=== PATIENT | female | born 1965 | race Hispanic/Latino ===

== ENCOUNTER 2016-09-26 16:28 | Emergency (ER) | payer SELFPAY ==
[2016-09-26 17:21] VITALS: BP 142/101
== END 2016-09-27 03:05 | disposition left against medical advice (07) ==
LOC: ED 16:28
DX: S69.91XA Unspecified injury of right wrist, hand and finger(s), initial encounter (principal); M19.90 Unspecified osteoarthritis, unspecified site; I25.2 Old myocardial infarction; I10 Essential (primary) hypertension; E78.5 Hyperlipidemia, unspecified; F17.200 Nicotine dependence, unspecified, uncomplicated; X58.XXXA Exposure to other specified factors, initial encounter; Y93.89 Activity, other specified; Y99.9 Unspecified external cause status; Y92.89 Other specified places as the place of occurrence of the external cause; Z53.21 Procedure and treatment not carried out due to patient leaving prior to being seen by health care provider

== ENCOUNTER 2016-10-09 07:34 | Emergency (ER) | payer SELFPAY ==
[2016-10-09 08:23] VITALS: BP 115/72
--- NOTE | 2016-10-09 08:57 | Emergency Department Report ---
HPI - General Chief Complaint: Extremity Injury, Upper Time Seen by Provider: 10/09/16 08:48 - HPI HPI: Patient is a 51-year-old female presents to the ED complaining of right thumb swelling and redness times several weeks. Patient states right abdominal A painful. Patient states to be sore at the not painful. Patient states she would not lie to have drained or anyone to touch her finger. Patient's he she will like some antibiotics and referral for mini clinic to follow-up. Patient states she is in a recovery program and would like nothing for pain. Patient denies nail biting. She denies history of diabetes or hypertension or any other medical conditions She denies fevers/chills/nausea/vomiting/any other problems. ED Past Medical Hx - Past Medical History Previous Medical History?: Yes Hx Hypertension: Yes Hx Heart Attack/AMI: Yes Hx Congestive Heart Failure: No Hx Diabetes: No Hx Arthritis: Yes Hx Psychiatric Treatment: Yes ([facility] , Drug abuse) Hx Asthma: No Hx COPD: No Additional medical history: hyperlipidemia, Drug use - Surgical History Past Surgical History?: Yes Hx Coronary Stent: Yes Additional Surgical History: Right Ankle skin graft - Social History Smoking Status: Current Every Day Smoker Substance Use Type: Prescribed - Medications Home Medications: Home Medications Medication Instructions Recorded Confirmed Last Taken Type Aspirin [Baby Aspirin] 81 mg PO QDAY 04/22/13 04/15/14 10/17/13 History Clopidogrel [Plavix] 75 mg PO QDAY #30 tablet 08/28/13 04/15/14 10/17/13 Rx Metoprolol [Lopressor TAB] 25 mg PO BID #60 tablet 08/28/13 04/15/14 10/17/13 Rx Pravastatin (Nf) [Pravachol] 80 mg PO QHS #30 tablet 08/28/13 04/15/14 10/17/13 Rx Sertraline [Zoloft] 50 mg PO QDAY #30 tablet 10/31/13 04/15/14 Unknown Rx Ciprofloxacin HCl [Ciprofloxacin 250 mg PO BID #6 tablet 04/19/14 Unknown Rx TAB] Cephalexin [Keflex] 500 mg PO TID #21 cap 10/09/16 Unknown Rx ED Review of Systems ROS: Stated complaint: RT NAIL INFECTION Other details as noted in HPI Constitutional: denies: chills, fever, malaise Eyes: denies: eye pain, eye discharge, vision change ENT: denies: ear pain, throat pain, dental pain, hearing loss Respiratory: denies: cough, shortness of breath, wheezing Cardiovascular: denies: chest pain, palpitations Endocrine: no symptoms reported Gastrointestinal: denies: abdominal pain, nausea, diarrhea Genitourinary: denies: urgency, dysuria, discharge Musculoskeletal: denies: back pain, joint swelling, arthralgia Skin: change in hair/nails (right thumb red and swollen). denies: rash, lesions , pruritus Neurological: denies: headache, weakness, paresthesias Psychiatric: denies: anxiety, depression Hematological/Lymphatic: denies: easy bleeding, easy bruising Physical Exam - Physical Exam Vital Signs: Vital Signs 10/09/16 08:17 Temperature 98.7 F Pulse Rate 98 H Respiratory 20 Rate Blood Pressure 115/72 O2 Sat by Pulse 96 Oximetry Physical Exam: GENERAL: Alert and oriented x3, no apparent distress, Normal Gait, atraumatic. HEAD: Head is normocephalic and a-traumatic. EYES: Extra ocular muscles are intact. Pupils are equal, round, and reactive to light and accommodation. EARS: symetrical, atraumatic. gross auditory nml bilaterally. NOSE: Nose symetrical, Nontender,Nares appeared normal. MOUTH:Mouth is well hydrated and without lesions. LUNGS: Symetrical with respiration, No wheezing, no rales or crackles, CTAB. HEART: S1, S2 present, regular rate and rhythm without murmur, no rubs, no gallops. EXTREMITIES/MUSCULOSKELETAL: No cyanosis, clubbing, rash, lesions or edema. Full ROM in hands bilaterally. Radial Pulses 2+ bilaterally. UE 5+ strength bilaterally, right thumb erythematous, edematous 3-4 cm in diameter, fluctuant. Nontender to palpation of right thumb. No loss of sensation. No active drainage. SKIN: Warm and dry, No lesions, No ulceration or induration present. ED Course Vital Signs 10/09/16 08:17 Temperature 98.7 F Pulse Rate 98 H Respiratory 20 Rate Blood Pressure 115/72 O2 Sat by Pulse 96 Oximetry ED Medical Decision Making - Medical Decision Making 51-year-old female presents with thumb paronychia and cellulitis. ED course: Patient states adamantly states she does not want her finger drained. Patient states she does not want it drained in the ED she would like a referral for a clinic to follow-up and have it drained. Patient also states she'll light some antibiotics. Discussed the patient to soak his thumb a warm water and Epson salt 3 times a day. Discussed to take antibiotics as prescribed. Discussed possibility of draining on its own and if not she needs to follow-up some is possible with the clinic as referred. Discussed the patient complications of not drain in an abscess and infection. Discussed the patient infection can spread to her bones and cause of osteomyelitis as well as loss of finger. Patient states she verbally understands and does not want to have it drained in the ED. Patient is alert and oriented 3 patient is in no distress patient is able to make decisions on her own. Critical care attestation.: If time is entered above; I have spent that time in minutes in the direct care of this critically ill patient, excluding procedure time. ED Disposition Clinical Impression: Paronychia of finger of right hand, Cellulitis of right thumb Disposition: DISCHARGED TO HOME OR SELFCARE Is pt being admited?: No Does the pt Need Aspirin: No Condition: Stable Instructions: Paronychia (ED), Cellulitis (ED) Additional Instructions: Follow-up with primary care physician as referred. take prescription antibiotics as prescribed. Soak Thumb In warm water/epsom salt 3 times a day. Continue to use your topical antibiotic applied to affected area you refused to have his thumb drained today. you understand that if your thumb abscess is not drained, can cause other complications including but not limited to loss of finger Prescriptions: Cephalexin [Keflex] 500 mg PO TID #21 cap Referrals: PRIMARY CARE, [Primary Care Provider] - 3-5 Days [facility] [Outside] - 3-5 Days [facility] [Outside] - 3-5 Days [facility] [Outside] - 3-5 Days [facility] [Outside] - 3-5 Days Forms: Work/School Release Form(ED) Time of Disposition: 09:21
== END 2016-10-09 09:24 | disposition home or self-care (01) ==
LOC: ED 07:34
DX: L03.011 Cellulitis of right finger (principal); I10 Essential (primary) hypertension; I25.2 Old myocardial infarction; M19.90 Unspecified osteoarthritis, unspecified site; E78.5 Hyperlipidemia, unspecified; Z95.818 Presence of other cardiac implants and grafts; F17.200 Nicotine dependence, unspecified, uncomplicated; Z79.82 Long term (current) use of aspirin
CPT/HCPCS: 99282

== ENCOUNTER 2017-09-19 16:59 | Emergency (ER) | payer SELFPAY ==
[2017-09-19 17:11] VITALS: BP 120/68
[2017-09-19 17:50] LABS: Basophils % (Auto) 0.6 % (0.0-1.8); Eosinophils % (Auto) 0.7 % (0.0-4.3); Lymphocytes # (Auto) 2.9 K/mm3 (1.2-5.4); Lymphocytes % (Auto) 38.9 % (13.4-35.0); Mean Corpuscular HGB Conc 35 % (30-34); Mean Corpuscular Hemoglobin 33 pg (28-32); Mean Corpuscular Volume 95 fl (79-97); Monocytes # (Auto) 0.4 K/mm3 (0.0-0.8); Monocytes % (Auto) 6.1 % (0.0-7.3); Platelet Count 323 K/mm3 (140-440); Red Blood Count 5.18 M/mm3 (3.65-5.03); Red Cell Distribution Width 12.4 % (13.2-15.2)
[2017-09-19 17:54] LABS: Bilirubin,Urine NEG (Negative); Blood,Urine NEG (Negative); Color,Urine Straw (Yellow); Protein,Urine <15 mg/dL mg/dL (Negative); Urobilinogen,Urine < 2.0 mg/dL (<2.0); WBC,Urine < 1.0 /HPF (0.0-6.0)
[2017-09-19 18:02] LABS: BUN/Creatinine Ratio 10; Blood Urea Nitrogen 6 mg/dL (7-17); Calcium 9.3 mg/dL (8.4-10.2); Hemolysis Index 5
[2017-09-19] MEDS ORDERED: NACL 0.9% 1000 ML 1,000 ML IV ONE ×2 (21:08)
[2017-09-19] MEDS ORDERED: HumuLIN R IV ONE (21:08)
== END 2017-09-20 07:11 | disposition left against medical advice (07) ==
LOC: ED 16:59
DX: R73.9 Hyperglycemia, unspecified (principal); Z53.21 Procedure and treatment not carried out due to patient leaving prior to being seen by health care provider
CPT/HCPCS: 36415; 80048; 81001; 82805; 85025